=== PATIENT | female | born 1970 | race Hispanic/Latino ===

== ENCOUNTER → 2020-02-01 | Outpatient (CLI) | payer OTHER | LOC: MAMMO 11:20 | PROVIDERS: ATTEND Internal Medicine | DX: Z12.31 Encounter for screening mammogram for malignant neoplasm of breast (principal) | CPT/HCPCS: 77067 ==

== ENCOUNTER → 2022-07-18 | Day surgery (SDC) | payer BC ==
[~2022-07-18] MED LIST: ALBUTEROL0.63 MG/3 NEB; LACTATED RINGER'S 1,000 ML BAG IV ONE; LEVOCETIRIZINE D5 MG PO; LIDOCAINE HCL 2% LOCAL INJ 5 ML SDV VIAL INJ ONE; MIDAZOLAM HCL 2 MG/2 ML VIAL ONE; PROPOFOL IV EMULSION 10 MG/ML 20 ML VIAL ONE
[2022-07-18 11:20] VITALS: BP 122/63
== END | disposition home or self-care (01) ==
LOC: OR 08:36
PROVIDERS: ATTEND Internal Medicine Gastroenterology
DX: K59.00 Constipation, unspecified (principal); D12.0 Benign neoplasm of cecum; K64.8 Other hemorrhoids; J40 Bronchitis, not specified as acute or chronic; Z01.810 Encounter for preprocedural cardiovascular examination; Z79.899 Other long term (current) drug therapy
CPT/HCPCS: 45380; 93005; J2001; J2250; J2704; J7121

== ENCOUNTER 2022-08-04 13:19 | Outpatient (RCR) | payer BC ==
[~2022-08-04 13:19] MED LIST changes: -LACTATED RINGER'S 1,000 ML BAG IV ONE; -LIDOCAINE HCL 2% LOCAL INJ 5 ML SDV VIAL INJ ONE; -MIDAZOLAM HCL 2 MG/2 ML VIAL ONE; -PROPOFOL IV EMULSION 10 MG/ML 20 ML VIAL ONE
== END 2022-08-19 ==
LOC: PT 13:19
PROVIDERS: ATTEND Internal Medicine
DX: M47.816 Spondylosis without myelopathy or radiculopathy, lumbar region (principal)